=== PATIENT | male | born 1995 | race African-American/Black ===

== ENCOUNTER 2018-01-01 14:16 | Emergency (ER) | payer OTHER ==
[~2018-01-01] VITALS: Ht 180.3 cm; Wt 68.0 kg
[2018-01-01] MEDS ORDERED: OLANZapine IM 10 MG VIAL IM ONE (14:30)
--- NOTE | 2018-01-01 14:33 | PD ---
HPI Chief Complaint: BA Time Seen by Provider: 14:28 Travel History International Travel<30 days: No Contact w/Intl Traveler<30days: No Traveled to known affect area: No History of Present Illness HPI 22-year-old male brought to emergency department under Armendariz act for psychiatric evaluation. Patient was running around the apartment complex stating he was looking for his sister. He tells me that he sees spirits and talks to spirit and people think he is crazy. He tells me that they were telling him where his sister is that she is on a rate somewhere. He has a psychiatric history but does not take medication PFSH Past Medical History Medical History: Denies Significant Hx Diminished Hearing: No Social History Alcohol Use: No Tobacco Use: No Substance Use: No Allergies-Medications (Allergen,Severity, Reaction): Coded Allergies: quetiapine (Unverified Allergy, Unknown, 07/07/17) Reported Meds & Prescriptions Reported Meds & Active Scripts Active No Active Prescriptions or Reported Medications Review of Systems Except as stated in HPI: all other systems reviewed are Neg Physical Exam Narrative GENERAL: Well-nourished male patient, ambulatory and in no acute distress. SKIN: Focused skin assessment warm/dry. HEAD: Atraumatic. Normocephalic. EYES: Pupils equal and round. No scleral icterus. No injection or drainage. ENT: No nasal bleeding or discharge. Mucous membranes pink and moist. NECK: Trachea midline. No JVD. CARDIOVASCULAR: Tachycardic rate and rhythm. No murmur appreciated. RESPIRATORY: No accessory muscle use. Clear to auscultation. Breath sounds equal bilaterally. GASTROINTESTINAL: Abdomen soft, non-tender, nondistended. Hepatic and splenic margins not palpable. MUSCULOSKELETAL: No obvious deformities. No clubbing. No cyanosis. No edema. NEUROLOGICAL: Awake and alert. No obvious cranial nerve deficits. Motor grossly within normal limits. Normal speech. PSYCHIATRIC: Bizarre affect. Data Data Last Documented VS Vital Signs Date Time Temp Pulse Resp B/P (MAP) Pulse Ox O2 Delivery O2 Flow Rate FiO2 01/01/18 18:20 74 20 127/75 (92) 98 Room Air 01/01/18 15:55 98.5 Orders Orders Complete Blood Count With Diff (01/01/18 14:28) Thyroid Stimulating Hormone (01/01/18 14:28) Basic Metabolic Panel (Bmp) (2/9/18 14:28) Psych Screen (01/01/18 14:28) Drug Screen, Random Urine (01/01/18 14:28) Alcohol (Ethanol) (01/01/18 14:28) Olanzapine Inj (Zyprexa Inj) (01/01/18 14:30) Diet Regular Basic (01/01/18 Dinner) Labs Laboratory Tests Test 01/01/18 15:45 White Blood Count 3.2 TH/MM3 Red Blood Count 4.73 MIL/MM3 Hemoglobin 14.2 GM/DL Hematocrit 41.3 % Mean Corpuscular Volume 87.3 FL Mean Corpuscular Hemoglobin 30.0 PG Mean Corpuscular Hemoglobin Concent 34.3 % Red Cell Distribution Width 14.2 % Platelet Count 188 TH/MM3 Mean Platelet Volume 9.2 FL Neutrophils (%) (Auto) 59.8 % Lymphocytes (%) (Auto) 23.7 % Monocytes (%) (Auto) 15.1 % Eosinophils (%) (Auto) 0.8 % Basophils (%) (Auto) 0.6 % Neutrophils # (Auto) 1.9 TH/MM3 Lymphocytes # (Auto) 0.8 TH/MM3 Monocytes # (Auto) 0.5 TH/MM3 Eosinophils # (Auto) 0.0 TH/MM3 Basophils # (Auto) 0.0 TH/MM3 CBC Comment DIFF FINAL Differential Comment Blood Urea Nitrogen 7 MG/DL Creatinine 0.96 MG/DL Random Glucose 96 MG/DL Calcium Level 9.0 MG/DL Sodium Level 141 MEQ/L Potassium Level 3.4 MEQ/L Chloride Level 105 MEQ/L Carbon Dioxide Level 26.6 MEQ/L Anion Gap 9 MEQ/L Estimat Glomerular Filtration Rate 121 ML/MIN Thyroid Stimulating Hormone 3rd Gen 1.010 uIU/ML Ethyl Alcohol Level LESS THAN 3 MG/DL MDM Medical Decision Making Medical Screen Exam Complete: Yes Emergency Medical Condition: Yes Medical Record Reviewed: Yes Differential Diagnosis Mood disorder versus personality disorder versus adjustment reaction disorder versus polysubstance abuse Narrative Course 22-year-old male presents to emergency department under Armendariz act for psychiatric evaluation. Patient appears without distress. He does have a bizarre affect and is not making sense about what he is talking about. He does state he talks to spirits. Patient has been offered something to help him calm down. He requests a shot. I will give him Zyprexa IM. Laboratory Tests Test 01/01/18 15:45 White Blood Count 3.2 TH/MM3 Red Blood Count 4.73 MIL/MM3 Hemoglobin 14.2 GM/DL Hematocrit 41.3 % Mean Corpuscular Volume 87.3 FL Mean Corpuscular Hemoglobin 30.0 PG Mean Corpuscular Hemoglobin Concent 34.3 % Red Cell Distribution Width 14.2 % Platelet Count 188 TH/MM3 Mean Platelet Volume 9.2 FL Neutrophils (%) (Auto) 59.8 % Lymphocytes (%) (Auto) 23.7 % Monocytes (%) (Auto) 15.1 % Eosinophils (%) (Auto) 0.8 % Basophils (%) (Auto) 0.6 % Neutrophils # (Auto) 1.9 TH/MM3 Lymphocytes # (Auto) 0.8 TH/MM3 Monocytes # (Auto) 0.5 TH/MM3 Eosinophils # (Auto) 0.0 TH/MM3 Basophils # (Auto) 0.0 TH/MM3 CBC Comment DIFF FINAL Differential Comment Blood Urea Nitrogen 7 MG/DL Creatinine 0.96 MG/DL Random Glucose 96 MG/DL Calcium Level 9.0 MG/DL Sodium Level 141 MEQ/L Potassium Level 3.4 MEQ/L Chloride Level 105 MEQ/L Carbon Dioxide Level 26.6 MEQ/L Anion Gap 9 MEQ/L Estimat Glomerular Filtration Rate 121 ML/MIN Thyroid Stimulating Hormone 3rd Gen 1.010 uIU/ML Ethyl Alcohol Level LESS THAN 3 MG/DL Lab work is reviewed. Patient is medically cleared to undergo psychiatric screening for further evaluation and disposition. Diagnosis Primary Impression: Acute psychosis Scripts No Active Prescriptions or Reported Meds Condition: Stable Nora Langley Jan 01, 2018 14:33
[2018-01-01 15:09] VITALS: BP 118/68; PULSE 112; RESP 20
[2018-01-01 15:55] VITALS: BP 126/78; PULSE 86; RESP 16; TEMP 98.5; O2SAT 100
[2018-01-01 16:03] LABS: AUTOMATED NEUTROPHIL # 1.9 TH/MM3 (1.8-7.7); BASOPHIL % 0.6 % (0.0-2.0); EOSINOPHIL % 0.8 % (0.0-4.0); HEMATOCRIT 41.3 % (39.0-51.0); HEMOGLOBIN 14.2 GM/DL (13.0-17.0); LYMPH % 23.7 % (9.0-44.0); LYMPHOCYTE # 0.8 TH/MM3 (1.0-4.8); MEAN CELL VOLUME 87.3 FL (80.0-100.0); MEAN CORPUSCULAR HGB CONC 34.3 % (32.0-36.0); MEAN PLATELET VOLUME 9.2 FL (7.0-11.0); MONO % 15.1 % (0.0-8.0); MONOCYTE # 0.5 TH/MM3 (0-0.9); NEUT % 59.8 % (16.0-70.0); PLATELET COUNT 188 TH/MM3 (150-450); RED BLOOD COUNT 4.73 MIL/MM3 (4.50-5.90); RED CELL DISTRIBUTION WIDTH 14.2 % (11.6-17.2); WHITE BLOOD COUNT 3.2 TH/MM3 (4.0-11.0)
[2018-01-01 16:14] LABS: BICARBONATE 26.6 MEQ/L (21.0-32.0); BLOOD UREA NITROGEN 7 MG/DL (7-18); CHLORIDE 105 MEQ/L (98-107); CREATININE 0.96 MG/DL (0.60-1.30); GLOMERULAR FILTRATION RATE 121 ML/MIN (>89); GLUCOSE,RANDOM 96 MG/DL (74-106); SODIUM (NA) 141 MEQ/L (136-145)
[2018-01-01 18:20] VITALS: BP 127/75; PULSE 74; RESP 20; O2SAT 98
[2018-01-02] MEDS ORDERED: LORazepam 2 MG/ML VIAL IM ONE (01:15)
[2018-01-02] MEDS ORDERED: diphenhydrAMINE HCL 50 MG/ML VIAL IM ONE (01:15)
[2018-01-02 03:30] VITALS: BP 168/92; PULSE 106; RESP 17; TEMP 99.4; O2SAT 100
[2018-01-02 10:02] VITALS: BP 103/65; RESP 16; TEMP 98.4; O2SAT 99
--- NOTE | 2018-01-02 13:54 | PD ---
History of Present Illness Chief Complaint: Psychiatric Symptoms Time Seen by Provider: 13:20 Travel History International Travel<30 Days: No Contact w/Intl Traveler<30days: No Known affected area: No Legal Status Legal Status: Armendariz Act Armendariz Act Signed By: Sera Mckeon Armendariz Act Comment: Signed by [facility] Officer Lucinda Moran #[id number]. History of Present Illness: History of Present Illness HPI 22-year-old male with no reported psychiatric history who presents to emergency department under Armendariz act initiated by law enforcement for psychiatric evaluation. The Armendariz act alleges that this patient was found running around an apartment complex that he does not reside at threatening people and accusing them of killing his sister. The staff chased him around the complex all the while he was knocking on doors and stealing male. He talks to people were not there and ask erratic. The patient presents to the emergency department in J pod and is oppositional. He slept after his arrival and as per nursing report was up in the middle of the night. The patient required ETO during the night. Electronic medical record is reviewed. No previous contact with [facility] psychiatry. Toxicology is positive for amphetamines and cannabinoids. This afternoon the patient is requesting to be discharged. He is seen with Adelia TRUJILLO present during interview. He is alert and oriented. His speech is clear. He denies any hallucinations and does not appear internally preoccupied. Patient was observed talking to himself in the corner he told this procedure writer that he was talking to God and praying. The patient states that he just [facility] out [facility] and found out that his sister was . He does remember running around the neighborhood and he says that that's where his sister was living the last time he heard from her and he was trying to find information about her . He admits to using methamphetamine and not sleeping for some days. Patient now wants to be able to get his car and has plans of moving back to [place] with his grandfather. He denies any suicidal or homicidal ideation, intent or plan. He is not psychotic. PFSH Past Medical History Medical History: Denies Significant Hx Diminished Hearing: No Psychiatric History Psychiatric History Hx Psychiatric Treatment: Pt denies. He maintains that he is allergic to Benadryl and he alleges it makes him break out in Hives. History of Inpatient Treatment: No Guns or firearms in home: No Social History Single never male. Originally from [place]. Homeless. Reports recently released from [facility]. Hx Alcohol Use: No Hx Tobacco Use: No Substance Use Type: Amphetamines-Stimulants Hx of Substance Use Treatment: No Allergies-Medications (Allergen,Severity, Reaction): Coded Allergies: diphenhydramine (Verified Allergy, Unknown, Hives, 01/02/18) Per pt. quetiapine (Unverified Allergy, Unknown, 07/07/17) Reported Meds & Prescriptions Reported Meds & Active Scripts Active No Active Prescriptions or Reported Medications Review of Systems Psychiatric: DENIES: Anxiety, Confusion, Mood changes, Depression, Hallucinations, Agitation, Suicidal Ideation, Homicidal Ideation, Delusions Except as stated in HPI: all other systems reviewed are Neg Mental Status Examination Appearance: Disheveled Consciousness: Alert Orientation: x4 Motor Activity: Normal gait Speech: Unremarkable Language: Adequate Fund of Knowledge: Adequate Attention and Concentration: Adequate Memory: Unremarkable Mood: Appropriate Affect: Appropriate Thought Process & Associations: Intact Thought Content: Appropriate Hallucination Type: None Delusion Type: None Suicidal Ideation: No Suicidal Plan: No Suicidal Intention: No Homicidal Ideation: No Homicidal Plan: No Insight: Fair Judgment: Impulsive MDM Medical Decision Making Medical Record Reviewed: Yes Assessment/Plan 22-year-old male with no reported psychiatric history who presents to emergency department under Armendariz act initiated by law enforcement for psychiatric evaluation. The Armendariz act alleges that this patient was found running around an apartment complex that he does not reside at threatening people and accusing them of killing his sister. The staff chased him around the complex all the while he was knocking on doors and stealing male. He talks to people were not there and ask erratic. The patient presents to the emergency department in J pod and is oppositional. He slept after his arrival and as per nursing report was up in the middle of the night. The patient required ETO during the night. Patient was allowed to sleep and was interviewed when he was coherent and does not appear to be under the influence of substances. He presents no psychosis, no ten or hypomania. He denies any suicidal or homicidal ideation, intent or plan. He is wanting to return back to [place] to be with his grandfather. At this time he does not meet criteria for Armendariz act. He is requesting discharge and I find no grounds to keep him here against his will. No evidence of unstable mental illness. Behavior leading to the Armendariz act appears to be related to acute amphetamine use. The Armendariz act is lifted psychiatric clear for discharge Orders Orders Complete Blood Count With Diff (01/01/18 14:28) Thyroid Stimulating Hormone (01/01/18 14:28) Basic Metabolic Panel (Bmp) (01/01/18 14:28) Psych Screen (01/01/18 14:28) Drug Screen, Random Urine (01/01/18 14:28) Alcohol (Ethanol) (01/01/18 14:28) Olanzapine Inj (Zyprexa Inj) (01/01/18 14:30) Diet Regular Basic (01/01/18 Dinner) Lorazepam Inj (Ativan Inj) (01/02/18 01:15) Diphenhydramine Inj (Benadryl Inj) (01/02/18 01:15) Diet Regular Basic (01/02/18 Breakfast) Results Vital Signs Date Time Temp Pulse Resp B/P (MAP) Pulse Ox O2 Delivery O2 Flow Rate FiO2 01/02/18 10:02 98.4 16 103/65 (78) 99 Room Air 01/02/18 03:30 99.4 106 17 100 Room Air 168/92 (117) 01/01/18 18:20 74 20 127/75 (92) 98 Room Air 01/01/18 15:55 98.5 86 16 126/78 (94) 100 Room Air 01/01/18 15:09 112 20 118/68 (85) Laboratory Tests Test 01/01/18 15:45 01/02/18 04:00 White Blood Count 3.2 Red Blood Count 4.73 Hemoglobin 14.2 Hematocrit 41.3 Mean Corpuscular Volume 87.3 Mean Corpuscular Hemoglobin 30.0 Mean Corpuscular Hemoglobin Concent 34.3 Red Cell Distribution Width 14.2 Platelet Count 188 Mean Platelet Volume 9.2 Neutrophils (%) (Auto) 59.8 Lymphocytes (%) (Auto) 23.7 Monocytes (%) (Auto) 15.1 Eosinophils (%) (Auto) 0.8 Basophils (%) (Auto) 0.6 Neutrophils # (Auto) 1.9 Lymphocytes # (Auto) 0.8 Monocytes # (Auto) 0.5 Eosinophils # (Auto) 0.0 Basophils # (Auto) 0.0 CBC Comment DIFF FINAL Differential Comment Blood Urea Nitrogen 7 Creatinine 0.96 Random Glucose 96 Calcium Level 9.0 Sodium Level 141 Potassium Level 3.4 Chloride Level 105 Carbon Dioxide Level 26.6 Anion Gap 9 Estimat Glomerular Filtration Rate 121 Thyroid Stimulating Hormone 3rd Gen 1.010 Ethyl Alcohol Level LESS THAN 3 Urine Opiates Screen NEG Urine Barbiturates Screen NEG Urine Amphetamines Screen POS Urine Benzodiazepines Screen NEG Urine Cocaine Screen NEG Urine Cannabinoids Screen NEG Diagnosis Primary Impression: Substance-induced psychotic disorder Additional Impression: Amphetamine abuse Psychiatrically Cleared: Yes Med/ Other Pt Specific Info: No Meds Exist/No RX given Prescriptions No Active Prescriptions or Reported Meds Disposition: 01 DISCHARGE HOME Condition: Stable Problem Qualifiers Alcira Brewster Jan 02, 2018 13:53
--- NOTE | 2018-01-02 14:27 | PD ---
Physical Exam Time Seen by Provider: 14:25 TWIN Rowell has evaluated the patient, with Armendariz act and cleared the patient for discharge. Data Data Last Documented VS Vital Signs Date Time Temp Pulse Resp B/P (MAP) Pulse Ox O2 Delivery O2 Flow Rate FiO2 01/02/18 10:02 98.4 16 103/65 (78) 99 Room Air 01/02/18 03:30 106 Orders Orders Complete Blood Count With Diff (01/01/18 14:28) Thyroid Stimulating Hormone (01/01/18 14:28) Basic Metabolic Panel (Bmp) (01/01/18 14:28) Psych Screen (01/01/18 14:28) Drug Screen, Random Urine (01/01/18 14:28) Alcohol (Ethanol) (01/01/18 14:28) Olanzapine Inj (Zyprexa Inj) (01/01/18 14:30) Diet Regular Basic (01/01/18 Dinner) Lorazepam Inj (Ativan Inj) (01/02/18 01:15) Diphenhydramine Inj (Benadryl Inj) (01/02/18 01:15) Diet Regular Basic (01/02/18 Breakfast) Labs Laboratory Tests Test 01/01/18 15:45 01/02/18 04:00 White Blood Count 3.2 TH/MM3 Red Blood Count 4.73 MIL/MM3 Hemoglobin 14.2 GM/DL Hematocrit 41.3 % Mean Corpuscular Volume 87.3 FL Mean Corpuscular Hemoglobin 30.0 PG Mean Corpuscular Hemoglobin Concent 34.3 % Red Cell Distribution Width 14.2 % Platelet Count 188 TH/MM3 Mean Platelet Volume 9.2 FL Neutrophils (%) (Auto) 59.8 % Lymphocytes (%) (Auto) 23.7 % Monocytes (%) (Auto) 15.1 % Eosinophils (%) (Auto) 0.8 % Basophils (%) (Auto) 0.6 % Neutrophils # (Auto) 1.9 TH/MM3 Lymphocytes # (Auto) 0.8 TH/MM3 Monocytes # (Auto) 0.5 TH/MM3 Eosinophils # (Auto) 0.0 TH/MM3 Basophils # (Auto) 0.0 TH/MM3 CBC Comment DIFF FINAL Differential Comment Blood Urea Nitrogen 7 MG/DL Creatinine 0.96 MG/DL Random Glucose 96 MG/DL Calcium Level 9.0 MG/DL Sodium Level 141 MEQ/L Potassium Level 3.4 MEQ/L Chloride Level 105 MEQ/L Carbon Dioxide Level 26.6 MEQ/L Anion Gap 9 MEQ/L Estimat Glomerular Filtration Rate 121 ML/MIN Thyroid Stimulating Hormone 3rd Gen 1.010 uIU/ML Ethyl Alcohol Level LESS THAN 3 MG/DL Urine Opiates Screen NEG Urine Barbiturates Screen NEG Urine Amphetamines Screen POS Urine Benzodiazepines Screen NEG Urine Cocaine Screen NEG Urine Cannabinoids Screen NEG MDM Supervised Visit with VIC: No Narrative Course TWIN Eli has evaluated the patient, with Marcello arroyo and cleared the patient for discharge. Patient contracts safety. Denies suicidal or homicidal ideations. Patient will be provided community resource packet to /MIGUEL for follow-up. Has friends and family for support. Patient was medically cleared by alternate provider prior to psych screening. Patient has been evaluated by psychiatry and and is now cleared for discharge. Diagnosis Primary Impression: Substance-induced psychotic disorder Additional Impression: Amphetamine abuse Referrals: [facility] (Out patient) [facility] Primary Care Physician Psychiatrist Ab[facility] ARROY[facility] Patient Instructions: General Instructions, Mood Disorders (ED), Polysubstance Abuse (ED) Additional Instruction: Contract safety to your self and others Stop using drugs Follow-up with psychiatry Follow-up with primary care provider Follow-up with Luis Miguel Avery Return to the emergency department immediately with worsening of symptoms Med/Other Pt SpecificInfo: No Change to Meds, No Meds Exist/No RX given Scripts No Active Prescriptions or Reported Meds Disposition: 01 DISCHARGE HOME Condition: Stable Allie Evans Jan 02, 2018 14:27
== END 2018-01-02 14:51 | disposition home or self-care (01) ==
LOC: NEPJ 14:16
DX: F15.159 Other stimulant abuse with stimulant-induced psychotic disorder, unspecified (principal); Z88.8 Allergy status to other drugs, medicaments and biological substances
CPT/HCPCS: 80048; 80307; 84443; 85025; 96372; 99283; J1200; J2060